=== PATIENT | female | born 1930 | race Caucasian/White ===

== ENCOUNTER 2017-04-07 06:06 | Inpatient (IN) | payer MEDICARE, MEDICAID ==
[~2017-04-07 06:06] MED LIST: Lactated Ringers 1,000 ML IV SCH; Lidocaine 1%/Sod Bicarbonate in NS 8.4% 1 ML Syringe PRN; Sodium Chloride 0.9% 10 ML Syringe FLUSH PRN
--- NOTE | 2017-04-07 06:40 | PCM.PREANE ---
Preanesthetic Assessment - Anesthesia/Transfusion/Family Hx Anesthesia History: Prior Anesthesia Without Reaction Family History of Anesthesia Reaction: No Transfusion History: No Prior Transfusion(s) - Review of Systems General: No Symptoms Pulmonary: No Symptoms Cardiovascular: No Symptoms Gastrointestinal: No Symptoms Neurological: Numbness (in feet and legs) Other: Reports: None - Physical Assessment NPO Status Date: 04/06/17 NPO Status Time: 00:00 Pulse: 56 O2 Sat by Pulse Oximetry: 98 Respiratory Rate: 16 Blood Pressure: 147/68 Temperature: 36.7 C Height: 1.63 m Weight: 63.412 kg ASA Class: 3 Mental Status: Alert & Oriented x3 Airway Class: Mallampati = 1 Dentition: Reports: Dentures Thyro-Mental Finger Breadths: 3 Mouth Opening Finger Breadths: 3 ROM/Head Extension: Full Lungs: Clear to Auscultation, Normal Respiratory Effort Cardiovascular: Regular Rate, Regular Rhythm, No Murmurs - Lab Values: Laboratory Last Values MRSA (PCR) Negative 03/25/17 15:00 - Imaging/EKG Impressions: EKG SR - Allergies Allergies/Adverse Reactions: Allergies Allergy/AdvReac Type Severity Reaction Status Date / Time ciprofloxacin [From Cipro] Allergy Rash Verified 04/04/17 11:43 clarithromycin [From Biaxin] Allergy Rash Verified 04/04/17 11:43 rosuvastatin [From Crestor] Allergy Muscle Verified 04/04/17 11:43 Aches - Anesthesia Plan Pre-Op Medication Ordered: None - Acknowledgements Anesthesia Type Planned: Spinal Pt an Appropriate Candidate for the Planned Anesthesia: Yes Alternatives and Risks of Anesthesia Discussed w Pt/Guardian: Yes Pt/Guardian Understands and Agrees with Anesthesia Plan: Yes PreAnesthesia Questionnaire Other HEENT History: glasses, dentures Cardiovascular History: Reports: High Cholesterol, Hypertension Respiratory History: Reports: Asthma, COPD Gastrointestinal History: Reports: Chronic Constipation, Other (See Below) Other Gastrointestinal History: small bowel obstruction, malignant neoplasm of colon 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 Musculoskeletal History: Reports: Osteoarthritis, Osteoporosis Neurological History: Reports: Neuropathy, Peripheral Psychiatric History: Reports: Other (See Below) Other Psychiatric History: fatigue Endocrine/Metabolic History: Reports: None Hematologic History: Reports: None Immunologic History: Reports: None Oncologic (Cancer) History: Reports: Colon Dermatologic History: Reports: Other (See Below) Other Dermatologic History: seborrheic keratosis - Past Surgical History Head Surgeries/Procedures: Reports: None HEENT Surgical History: Reports: Other (See Below) Other HEENT Surgeries/Procedures: YAG procedure GI Surgical History: Reports: Colonoscopy, Other (See Below) Other GI Surgeries/Procedures: decompression of the cecum and left colon and small bowel, end to side coloproctostomy, gastruomy/duodenostomy with a duenas gastroduodenostomy tube, explorator laparotomy, sigmoid colectomy, cecorrhapy times one, ventral heniorrhaphy with mesh reinforcment Female Surgical History: Reports: Hysterectomy Male Surgical History: Reports: None Endocrine Surgical History: Reports: None Neurological Surgical History: Reports: None - SUBSTANCE USE Smoking Status *Q: Former Smoker Recreational Drug Use History: No - HOME MEDS Home Medications: Home Meds Acetaminophen [Tylenol Extra Strength] 1,000 mg PO BID PRN 04/04/17 [History] Albuterol [Proventil HFA] 2 puff INH Q4H PRN 04/04/17 [History] Calcium Carbonate/Vitamin D3 [Calcium 600 + Vit D 200] 1 tab PO DAILY 04/04/17 [ History] Cholecalciferol (Vitamin D3) [Vitamin D3] 2,000 unit PO BID 04/04/17 [History] Colesevelam HCl [Welchol] 3.75 mg PO DAILY 04/04/17 [History] Cyanocobalamin (Vitamin B-12) [Vitamin B-12] 5,000 mcg PO DAILY 04/04/17 [ History] Fish Oil/DHA/EPA [Fish Oil 1,200 MG] 1,200 g PO BID 04/04/17 [History] Fluticasone/Salmeterol [Advair 250-50 Diskus] 1 puff INH BID 04/04/17 [History] Multivit-Min/FA/Lycopene/Lut [Centrum Silver Tablet] 1 tab PO DAILY 04/04/17 [ History] Polyethylene Glycol 3350 [MiraLAX] 1 dose PO BID 04/04/17 [History] - CURRENT (IN HOUSE) MEDS Current Meds: Current Medications Lactated Ringer's (Ringers, Lactated) 1,000 mls @ 125 mls/hr IV ASDIRECTED KARLY Lidocaine/Sodium Bicarbonate (Buffered Lidocaine 1% In Ns 8.4%) 0.25 ml IV ONETIME PRN PRN Reason: Prior to IV Start Sodium Chloride (Saline Flush) 10 ml FLUSH ASDIRECTED PRN PRN Reason: Keep Vein Open Discontinued Medications Bupivacaine HCl (Marcaine 0.25%) Confirm Administered Dose 30 ml .ROUTE .STK- MED ONE Stop: 04/07/17 06:09 Cefazolin Sodium (Ancef) Confirm Administered Dose 2 gm .ROUTE .STK-MED ONE Stop: 04/07/17 06:09 Iodine (Iodine 2% Mild Tincture) Confirm Administered Dose 30 ml .ROUTE .STK- MED ONE Stop: 04/07/17 06:09 Tranexamic Acid (Cyklokapron) Confirm Administered Dose 1,000 mg .ROUTE .STK- MED ONE Stop: 04/07/17 06:09 Vancomycin HCl (Vancomycin) Confirm Administered Dose 1 gm .ROUTE .STK-MED ONE Stop: 04/07/17 06:09
[2017-04-07] MEDS ORDERED: Ondansetron 4 MG/2 ML SDV ONE (06:56)
[2017-04-07] MEDS ORDERED: fentaNYL 100 MCG/2 ML SDV ONE (06:57)
[2017-04-07] MEDS ORDERED: Propofol 200 MG/20 ML SDV ONE ×2 (06:57→07:57)
[2017-04-07] MEDS ORDERED: ceFAZolin 1 GM Vial ONE (06:57)
[2017-04-07] MEDS ORDERED: Morphine PF 10 MG/10 ML SDV ONE (06:58)
[2017-04-07] MEDS ORDERED: Phenylephrine 1% 10 MG/ML SDV ONE (07:36)
[2017-04-07] MEDS ORDERED: Atropine 0.4 MG/ML SDV ONE (07:44)
[2017-04-07] MEDS: ceFAZolin 1 GM Vial ONE ×2 (08:10→08:22)
[2017-04-07] MEDS: Iodine/Sodium Iodide 2% Tincture 30 ML Bottle ONE ×2 (08:10→08:20)
[2017-04-07] MEDS: Bupivacaine 0.25% 30 ML SDV ONE ×2 (08:11→08:25)
[2017-04-07] MEDS: Morphine 8 MG, EPINEPHrine 0.3 MG, Cefuroxime 750 MG, Ketorolac 30 MG, Sodium Chloride ... ONE ×10 (08:11→08:24)
[2017-04-07] MEDS: Vancomycin 1 GM SDV ONE ×2 (08:12→08:26)
[2017-04-07] MEDS ORDERED: Lactated Ringers 1,000 ML ONE (08:49)
[2017-04-07] MEDS ORDERED: Morphine 2 MG/ML Syringe IVPUSH PRN (09:00)
[2017-04-07] MEDS ORDERED: Magnesium Hydroxide 400 MG/5 ML Susp 30 ML Cup PO PRN (09:00)
[2017-04-07] MEDS ORDERED: Sennosides 8.6 MG Tab PO PRN (09:00)
[2017-04-07] MEDS ORDERED: Ondansetron 4 MG/2 ML SDV IVPUSH PRN (09:00)
[2017-04-07] MEDS ORDERED: diphenhydrAMINE 50 MG/ML SDV IVPUSH PRN (09:00)
[2017-04-07] MEDS ORDERED: Bisacodyl 5 MG Tab PO PRN (09:00)
[2017-04-07] MEDS ORDERED: Naloxone 0.4 MG/ML SDV IVPUSH PRN (09:00)
--- NOTE | 2017-04-07 09:02 | PCM.POSTAN ---
POST ANESTHESIA ASSESSMENT - MENTAL STATUS Mental Status: Alert, Oriented - VITAL SIGNS Pulse Rate: 61 SaO2: 96 Resp Rate: 11 Blood Pressure: 94/55 Temperature: 36.7 C - RESPIRATORY Respiratory Status: Respiratory Rate WNL, Airway Patent, O2 Saturation Stable, Supplemental Oxygen - CARDIOVASCULAR CV Status: Pulse Rate WNL, Blood Pressure Stable - GASTROINTESTINAL GI Status: No Symptoms - PAIN Pain Score: 0 - POST OP HYDRATION Hydration Status: Adequate & Stable - OBSERVATIONS Free Text/Narrative:: no anesthesia complications noted
--- NOTE | 2017-04-07 10:38 | CR ---
Pelvis and right hip: AP view of the pelvis was obtained as well as lateral view of the right hip. Comparison: No previous study. Right hip prosthesis is seen. Components are aligned. Soft tissue air is noted from the surgical procedure. Underlying bony structures appear intact. Degenerative change and scoliosis are noted within the spine. Vascular calcification is noted. Minimal degenerative change is seen within the sacroiliac joints. Impression: 1. Satisfactory radiographic appearance of recently placed right hip prosthesis. 2. Other incidental findings. Diagnostic code #2
[2017-04-07] MEDS ORDERED: Pneumococcal Polyvalent-23 Vaccine 0.5 ML SDV IM ONE (12:00)
[2017-04-07] MEDS ORDERED: Albuterol 6.7 GM Inhaler INH PRN (13:27)
--- NOTE | 2017-04-07 13:35 | PCM.CONS ---
H&P History of Present Illness - General Date of Service: 04/07/17 Admit Problem/Dx: Admission Diagnosis/Problem Admission Diagnosis/Problem Osteoarthritis of hip Source of Information: Patient, Old Records History Limitations: Reports: No Limitations - History of Present Illness Initial Comments - Free Text/Narative: Nayeli is a pleasant 86yo female s/p rt LAUR[facility] with Dr. Mckenzie this morning. She is doing well thus far. Denies pain as of yet, no nausea. VSS. PMH significant for HTN, HLD, COPD/asthma, chronic constipation, Peripheral Neuropathy, suborrheic keratosis, hx of tobacco use/smoking and hx of colon cancer. Hospitalist service is consulted for postoperative medical management. - Related Data Allergies/Adverse Reactions: Allergies Allergy/AdvReac Type Severity Reaction Status Date / Time ciprofloxacin [From Cipro] Allergy Rash Verified 04/07/17 06:56 clarithromycin [From Biaxin] Allergy Rash Verified 04/07/17 06:56 rosuvastatin [From Crestor] AdvReac Muscle Verified 04/07/17 07:08 Aches Home Medications: Home Meds Acetaminophen [Tylenol Extra Strength] 1,000 mg PO BID PRN 04/04/17 [History] Albuterol [Proventil HFA] 2 puff INH Q4H PRN 04/04/17 [History] Calcium Carbonate/Vitamin D3 [Calcium 600 + Vit D 200] 1 tab PO DAILY 04/04/17 [ History] Cholecalciferol (Vitamin D3) [Vitamin D3] 2,000 unit PO BID 04/04/17 [History] Colesevelam HCl [Welchol] 3.75 mg PO DAILY 04/04/17 [History] Cyanocobalamin (Vitamin B-12) [Vitamin B-12] 5,000 mcg PO DAILY 04/04/17 [ History] Fish Oil/DHA/EPA [Fish Oil 1,200 MG] 1,200 g PO BID 04/04/17 [History] Fluticasone/Salmeterol [Advair 250-50 Diskus] 1 puff INH BID 04/04/17 [History] Multivit-Min/FA/Lycopene/Lut [Centrum Silver Tablet] 1 tab PO DAILY 04/04/17 [ History] Polyethylene Glycol 3350 [MiraLAX] 1 dose PO BID 04/04/17 [History] Past Medical History Other HEENT History: glasses, dentures Cardiovascular History: Reports: High Cholesterol, Hypertension Respiratory History: Reports: Asthma, COPD Gastrointestinal History: Reports: Chronic Constipation, Other (See Below) Other Gastrointestinal History: small bowel obstruction, malignant neoplasm of colon 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 Musculoskeletal History: Reports: Osteoarthritis, Osteoporosis Neurological History: Reports: Neuropathy, Peripheral Psychiatric History: Reports: Other (See Below) Other Psychiatric History: fatigue Endocrine/Metabolic History: Reports: None Hematologic History: Reports: None Immunologic History: Reports: None Oncologic (Cancer) History: Reports: Colon Dermatologic History: Reports: Other (See Below) Other Dermatologic History: seborrheic keratosis - Infectious Disease History Infectious Disease History: Reports: Chicken Pox, Measles, Mumps - Past Surgical History Head Surgeries/Procedures: Reports: None HEENT Surgical History: Reports: Other (See Below) Other HEENT Surgeries/Procedures: YAG procedure GI Surgical History: Reports: Colonoscopy, Other (See Below) Other GI Surgeries/Procedures: decompression of the cecum and left colon and small bowel, end to side coloproctostomy, gastruomy/duodenostomy with a duenas gastroduodenostomy tube, explorator laparotomy, sigmoid colectomy, cecorrhapy times one, ventral heniorrhaphy with mesh reinforcment Female Surgical History: Reports: Hysterectomy Endocrine Surgical History: Reports: None Neurological Surgical History: Reports: None Social & Family History - Family History Family Medical History: Noncontributory - Tobacco Use Smoking Status *Q: Never Smoker Used Tobacco, but Quit: Yes Month Tobacco Last Used: 1994 Second Hand Smoke Exposure: No - Caffeine Use Caffeine Use: Reports: Coffee Other Caffeine Use: a lot-decaf - Recreational Drug Use Recreational Drug Use: No H&P Review of Systems - Review of Systems: Review Of Systems: See Below General: Reports: No Symptoms HEENT: Reports: No Symptoms Pulmonary: Reports: No Symptoms. Denies: Shortness of Breath, Cough Cardiovascular: Reports: No Symptoms. Denies: Chest Pain, Palpitations Gastrointestinal: Reports: No Symptoms. Denies: Abdominal Pain, Nausea Genitourinary: Reports: Other (bray cath ) Musculoskeletal: Reports: Other (denies c/o hip pain/surgical pain as of yet) Exam - Exam Exam: See Below - Vital Signs Vital Signs: Last Vital Signs Temp 97.5 F 04/07/17 09:45 Pulse 61 04/07/17 09:02 Resp 14 04/07/17 09:45 BP 117/60 04/07/17 09:45 Pulse Ox 96 04/07/17 09:45 Weight: 139 lb - Exam Quality Assessment: Urinary Catheter (draining clear light yellow urine), DVT Prophylaxis (SCD's in place bilat) General: Alert, Oriented, Cooperative HEENT: Conjunctiva Clear, EOMI, Hearing Intact, Mucosa Moist & [place], Pupils Equal Neck: Supple, Trachea Midline. No: JVD Lungs: Clear to Auscultation, Normal Respiratory Effort Cardiovascular: Regular Rate, Regular Rhythm GI/Abdominal Exam: Normal Bowel Sounds, Soft, Non-Tender (Female) Exam: Deferred Rectal (Female) Exam: Deferred Peripheral Pulses: 1+: Dorsalis Pedis (L), Dorsalis Pedis (R) Skin: Warm, Dry, Other (right hip dressing CDI) Neurological: Cranial Nerves Intact, Strength Equal Bilateral Neuro Extensive - Mental Status: Alert, Oriented x3, Normal Mood/Affect, Normal Cognition, Memory Intact Psychiatric: Alert, Normal Affect, Normal Mood - Patient Data Lab Results Last 24 hrs: Laboratory Results - last 24 hr 04/07/17 Range/Units 06:38 Blood Type O POSITIVE Gel Antibody Screen Negative Consult PN Assessment/Plan POD#: 0 (1) S/P total hip arthroplasty SNOMED Code(s): 555119986460, 164844242613 Code(s): Z96.649 - PRESENCE OF UNSPECIFIED ARTIFICIAL HIP JOINT Priority: High Current Visit: Yes Qualifiers: Laterality: right Qualified Code(s): Z96.641 - Presence of right artificial hip joint (2) Osteoarthritis SNOMED Code(s): 206895966 Code(s): M19.90 - UNSPECIFIED OSTEOARTHRITIS, UNSPECIFIED SITE Priority: High Current Visit: Yes Qualifiers: Osteoarthritis location: hip Osteoarthritis type: primary Laterality: right Qualified Code(s): M16.11 - Unilateral primary osteoarthritis, right hip (3) HTN (hypertension) SNOMED Code(s): 63710952 Code(s): I10 - ESSENTIAL (PRIMARY) HYPERTENSION Priority: Low Current Visit: No Qualifiers: Hypertension type: essential hypertension Qualified Code(s): I10 - Essential (primary) hypertension (4) HLD (hyperlipidemia) SNOMED Code(s): 07326691 Code(s): E78.5 - HYPERLIPIDEMIA, UNSPECIFIED Priority: Low Current Visit : No Qualifiers: Hyperlipidemia type: unspecified Qualified Code(s): E78.5 - Hyperlipidemia , unspecified (5) COPD (chronic obstructive pulmonary disease) SNOMED Code(s): 21696650 Code(s): J44.9 - CHRONIC OBSTRUCTIVE PULMONARY DISEASE, UNSPECIFIED Priority: Low Current Visit: No Qualifiers: Chronic bronchitis type: unspecified (6) Peripheral neuropathy SNOMED Code(s): 155668715 Code(s): G62.9 - POLYNEUROPATHY, UNSPECIFIED Priority: Low Current Visit : No Qualifiers: Peripheral neuropathy type: polyneuropathy, unspecified Qualified Code(s): G62.9 - Polyneuropathy, unspecified (7) History of colon cancer SNOMED Code(s): 694411383 Code(s): Z85.038 - PERSONAL HISTORY OF MALIGNANT NEOPLASM OF LARGE INTESTINE Priority: Low Current Visit: No Problem List Initiated/Reviewed/Updated: Yes My Orders Last 24 Hours: My Active Orders 04/07/17 13:27 Albuterol [Proventil HFA] 2 puff INH Q4H PRN 04/07/17 21:00 Cholecalciferol (Vitamin D3) [Vitamin D3] 2,000 unit PO BID Fish Oil/DHA/EPA [Fish Oil 1,200 MG] 1,200 g PO BID Fluticasone/Salmeterol [Advair Diskus 250-50] 1 puff INH BID Polyethylene Glycol 3350 [MiraLAX] 1 dose PO BID 04/08/17 09:00 Calcium Carbonate/Vitamin D3 [Calcium Carbonate/Vitamin D 1500 MG-200 Unit] 1 tab PO DAILY Colesevelam HCl [Welchol] 3.75 mg PO DAILY Cyanocobalamin (Vitamin B-12) [Vitamin B-12] 5,000 mcg PO DAILY Plan: I/P: S/P Rt LAUREN POD #0; Dr. Mckenzie -Pain management and DVT prophylax per primary team -PT/OT -RT/IS -Labs in am; hgb Chronic conditions: resume home meds HTN: stable currently HLD COPD/asthma PN Hx of colon cancer Hx of tobacco use/smoking, quit years ago Other: GI prophylax CM/SW for assist with DC planning Patient is Full Code status Thank you for allowing us to participate in patient POC. Please do not hesitate to contact us with any questions or concerns. Requesting Provider: Dr. Mckenzie Date Consult Requested: 04/07/17 Reason for Consult: Postop medical management Patient History Reviewed: Yes Time Spent (in minutes): 45
[2017-04-07] MEDS: ceFAZolin 2 GM in Premix Bag 1 BAG IV SCH ×2 (15:06→22:02)
[2017-04-07] MEDS: Famotidine 20 MG Tab PO SCH (20:54)
[2017-04-07] MEDS: Polyethylene Glycol 3350 Powder 17 GM Packet PO SCH (20:54)
[2017-04-07] MEDS: Docusate Sodium 100 MG Cap PO SCH (20:54)
--- NOTE | 2017-04-07 21:51 | PCM.OPNOTE ---
- General Post-Op/Procedure Note Date of Surgery/Procedure: 04/07/17 Operative Procedure(s): right total hipn arthroplasty Pre Op Diagnosis: right hip osteoarthrosis Post-Op Diagnosis: Same Anesthesia Technique: Local, MAC, Spinal Primary Surgeon: Kel Mckenzie Anesthesia Provider: [facility]les[facility] [employer] Control Supervisor: Palma Shahid Network Control Supervisor: Zarina Brandt EBL in mLs: 500 Complications: None Condition: Good Free Text/Narrative:: Intake & Output 04/07/17 04/07/17 04/07/17 06:59 14:59 22:59 Intake Total 450 680 Output Total 250 350 Balance 200 330
[2017-04-07] MEDS: Acetaminophen/HYDROcodone 325-5 MG Tab PO PRN (21:54)
--- NOTE | 2017-04-07 22:44 | OR ---
DATE OF OPERATION: 04/07/2017 SURGEON: Kel Mckenzie MD OPERATION PERFORMED: Right total hip arthroplasty. PREOPERATIVE DIAGNOSIS: Right hip osteoarthrosis. POSTOPERATIVE DIAGNOSIS: Right hip osteoarthrosis. ANESTHESIA: Local MAC with spinal. ANESTHESIA PROVIDER: Iglesia Lemos CRNA. ASSISTANTS: 1. Palma Shahid PA-C. 2. Zarina Brandt LPN. ESTIMATED BLOOD LOSS: 500 mL. COMPLICATIONS: None. CONDITION: Stable. IMPLANT: 1. [place] 52 mm Tritanium solid acetabular cup. 2. [place] size 6 Accolade II stem 127-degree neck angle. 3. 36 mm D-liner. 4. 36 mm Biolox +7.5 mm femoral head. DESCRIPTION OF PROCEDURE: The patient was identified in the preop holding area. Proper site was marked and identified by the surgeon. The patient was taken back to the operating theater where after adequate anesthesia, the patient was placed in the left lateral decubitus position. Axillary wedge was placed, all bony prominences were well padded, and pegs were placed and well padded. The patient's gluteal fold was parallel to the floor. At this time, the right hip was then sterilely prepped and draped in the usual sterile fashion. OR time-out was performed. The patient received 2 g IV Ancef. Standard posterior incision was made centered over the greater trochanter. The IT band and gluteal fascia were then incised along the incisional length. Charnley retractor was then placed. Short external rotators were identified along with piriformis tendon. Takedown of the piriformis tendon as well as short external rotators was done down to the level of the lesser trochanter. Capsulotomy was then performed as well. The hip was then dislocated. Neck cut guide was placed. The neck cut was then completed and found to be adequate. Anterior and posterior acetabular retractors were placed along with inferior acetabular retractor. The patient was noted to have kind of redundant capsule. Anterior and posterior labrum were removed along with pulvinar. Starting with a 45 reamer, I was able to ream up to a 52, which was found to be stable with a 52 mm trial. At this time, a 52 mm Tritanium solid acetabular cup was impacted into place in roughly 45 degrees abduction and 20 degrees of anteversion. It was found to have solid fixation. A 36 size D liner was then impacted into place. At this time, attention was turned to the femur. A femoral elevator was placed. A box chisel was used out laterally. Starter awl was placed down the canal. Starting with 0 broach, I broached up to a size 6 which was found to be rotationally and vertically stable. At this time, a 127-degree neck angle with a +5, 36 mm head was trialed. It was found to be just a minor amount short. At this time, it was decided that we would go with +7.5 mm head. A size 6 Accolade II stem was then impacted into place. 36 mm, +7.5 head was then impacted into place and the hip was reduced. It was found to be stable throughout range of motion. 1 L dilute Betadine solution was then irrigated through the hip along with 3 L of pulse lavage irrigation with Ancef. Periarticular injection was then completed. Two #5 Ethibond sutures were used for closure of the short external rotators and capsule. Vancomycin powder was placed topically along with topical tranexamic acid. #2 barbed suture was used for closure of the IT band and gluteal fascia, 2-0 Vicryl was used subcutaneously, and Prineo was used for the skin. The patient tolerated the procedure well and was sent to the PACU in stable condition. BERNRAD /[id number]
[2017-04-08] MEDS: Acetaminophen/HYDROcodone 325-5 MG Tab PO PRN ×2 (05:18→12:33)
[2017-04-08] MEDS: ceFAZolin 2 GM in Premix Bag 1 BAG IV SCH (06:06)
[2017-04-08] MEDS ORDERED: Multivitamins,Therapeutic Tab PO SCH (07:00)
--- NOTE | 2017-04-08 07:51 | PCM.CONSN ---
- General Info Date of Service: 04/08/17 Admission Dx/Problem (Free Text): Admission Diagnosis/Problem Admission Diagnosis/Problem Osteoarthritis of hip POD #[address] Mckenzie, doing well. No n/v. Pain controlled. Up with PT/OT , doing well. Plans DC home today with family to assist. Hgb 9.8 this am. VSS. Functional Status: Reports: Pain Controlled, Tolerating Diet, Ambulating, Urinating (bray cath dc'd this am), Incentive Spirometry. Denies: New Symptoms - Review of Systems General: Reports: No Symptoms HEENT: Reports: No Symptoms Pulmonary: Reports: No Symptoms Cardiovascular: Reports: No Symptoms Gastrointestinal: Reports: No Symptoms Genitourinary: Reports: No Symptoms Musculoskeletal: Reports: Leg Pain Skin: Reports: No Symptoms Neurological: Reports: No Symptoms Psychiatric: Reports: No Symptoms - Patient Data Vitals - Most Recent: Last Vital Signs Temp 97.5 F 04/08/17 03:17 Pulse 65 04/08/17 03:17 Resp 16 04/08/17 07:00 BP 103/50 L 04/08/17 03:17 Pulse Ox 95 04/08/17 03:17 Weight - Most Recent: 149 lb 1.6 oz I&O - Last 24 Hours: Intake & Output 04/07/17 04/08/17 04/08/17 22:59 06:59 14:59 Intake Total 680 700 Output Total 350 Balance 330 700 Lab Results Last 24 Hours: Laboratory Results - last 24 hr 04/07/17 04/08/17 04/08/17 Range/Units 06:38 05:35 05:35 WBC 7.30 (3.98-10.04) K/mm3 RBC 3.11 L (3.98-5.22) M/mm3 Hgb 9.8 L (11.2-15.7) gm/L Hct 30.7 L (34.1-44.9) % MCV 98.7 H (79.4-94.8) fl MCH 31.5 (25.6-32.2) pg MCHC 31.9 L (32.2-35.5) g/dl RDW Std Deviation 50.8 H (36.4-46.3) fL Plt Count 227 (182-369) K/mm3 MPV 10.3 (9.4-12.3) fl Sodium 136 (136-145) mEq/L Potassium 4.0 (3.5-5.1) mEq/L Chloride 103 (98-107) mEq/L Carbon Dioxide 24 (21-32) mEq/L Anion Gap 13.0 (5-15) BUN 20 H (7-18) mg/dL Creatinine 0.8 (0.55-1.02) mg/dL Est Cr Clr Drug Dosing 44.40 mL/min Estimated GFR (MDRD) > 60 (>60) mL/min BUN/Creatinine Ratio 25.0 H (14-18) Glucose 114 (83-115) mg/dL Calcium 8.3 L (8.5-10.1) mg/dL Total Bilirubin 0.5 (0.2-1.0) mg/dL AST 29 (15-37) U/L ALT 20 (14-59) U/L Alkaline Phosphatase 53 (46-116) U/L Total Protein 5.6 L (6.4-8.2) g/dl Albumin 2.7 L (3.4-5.0) g/dl Globulin 2.9 gm/dL Albumin/Globulin Ratio 0.9 L (1-2) Blood Type O POSITIVE Gel Antibody Screen Negative Med Orders - Current: Current Medications Hydrocodone Bitart/Acetaminophen ([place] 325-5 Mg) 1 - 2 tab PO Q4H PRN PRN Reason: Pain Last Admin: 04/08/17 05:18 Dose: 2 tab Albuterol (Proventil Hfa) 0 gm INH Q4H PRN PRN Reason: Shortness of Breath Bisacodyl (Dulcolax) 5 mg PO DAILY PRN PRN Reason: Constipation Calcium Carbonate (Calcium Carbonate/Vitamin D 1500 Mg-200 Unit) 1 tab PO DAILY [facility] Cholecalciferol (Vitamin D3) 2,000 units PO BID [facility] Cyanocobalamin (Vitamin B12) 5,000 mcg PO DAILY [facility] Docusate Sodium (Colace) 100 mg PO BID [facility] Last Admin: 04/07/17 20:54 Dose: 100 mg Famotidine (Pepcid) 20 mg PO BID [facility] Last Admin: 04/07/17 20:54 Dose: 20 mg Fish Oil (Fish Oil) 1 gm PO BID [facility] Magnesium Hydroxide (Milk Of Magnesia) 30 ml PO BID PRN PRN Reason: Constipation Morphine Sulfate (Morphine) 1 mg IVPUSH Q2H PRN PRN Reason: Breakthrough pain Multivitamins (Thera) 1 each PO WITHBREAKFAST [facility] Last Admin: 04/08/17 06:06 Dose: 1 each Naloxone HCl (Narcan) 0.1 mg IVPUSH Q5M PRN PRN Reason: Oversedation Ondansetron HCl (Zofran) 4 mg IVPUSH Q6H PRN PRN Reason: Nausea/Vomiting Colesevelam Hcl [ (Welchol] 3.75 Mg) 0 each PO DAILY [facility] Polyethylene Glycol (Miralax) 17 gm PO BID [facility] Last Admin: 04/07/17 20:54 Dose: 17 gm Rivaroxaban (Xarelto) 10 mg PO DAILY [facility] Fluticasone/Salmeterol (Advair Diskus 250-50) 0 puff INH BID [facility] Senna (Senna) 8.6 mg PO BID PRN PRN Reason: Constipation Discontinued Medications Atropine Sulfate (Atropine) Confirm Administered Dose 0.4 mg .ROUTE .STK-MED ONE Stop: 04/07/17 07:45 Bupivacaine HCl (Marcaine 0.25%) Confirm Administered Dose 30 ml .ROUTE .STK- MED ONE Stop: 04/07/17 06:09 Last Admin: 04/07/17 08:25 Dose: 30 ml Cefazolin Sodium (Ancef) Confirm Administered Dose 2 gm .ROUTE .STK-MED ONE Stop: 04/07/17 06:09 Last Admin: 04/07/17 08:22 Dose: 2 gm Cefazolin Sodium (Ancef) Confirm Administered Dose 2 gm .ROUTE .STK-MED ONE Stop: 04/07/17 06:58 Morphine Sulfate 8 mg/Epinephrine HCl 0.3 mg/Cefuroxime Sodium 750 mg/Ketorolac Tromethamine 30 mg/Sodium Chloride 27.9 ml 0 mg .XX ONETIME ONE Stop: 04/07/17 07:46 Last Admin: 04/07/17 08:24 Dose: 788.3 mg Diphenhydramine HCl (Benadryl) 25 mg IVPUSH Q6H PRN PRN Reason: Itching Stop: 04/07/17 12:00 Fentanyl (Sublimaze) Confirm Administered Dose 100 mcg .ROUTE .STK-MED ONE Stop: 04/07/17 06:58 Lactated Ringer's (Ringers, Lactated) 1,000 mls @ 125 mls/hr IV ASDIRECTED [facility] Stop: 04/07/17 23:00 Last Admin: 04/07/17 06:45 Dose: 125 mls/hr Cefazolin Sodium/Dextrose 2 gm (/ Premix) 50 mls @ 100 mls/hr IV Q8H [facility] Stop: 04/08/17 07:29 Last Admin: 04/08/17 06:06 Dose: 100 mls/hr Lactated Ringer's (Ringers, Lactated) Confirm Administered Dose 1,000 mls @ as directed .ROUTE .STK-MED ONE Stop: 04/07/17 08:50 Iodine (Iodine 2% Mild Tincture) Confirm Administered Dose 30 ml .ROUTE .STK- MED ONE Stop: 04/07/17 06:09 Last Admin: 04/07/17 08:20 Dose: 18 ml Lidocaine/Sodium Bicarbonate (Buffered Lidocaine 1% In Ns 8.4%) 0.25 ml .XX ONETIME PRN PRN Reason: Prior to IV Start Stop: 04/07/17 12:00 Last Admin: 04/07/17 06:45 Dose: 0.25 ml Morphine Sulfate (Duramorph Pf) Confirm Administered Dose 10 mg .ROUTE .STK-MED ONE Stop: 04/07/17 06:59 Ondansetron HCl (Zofran) Confirm Administered Dose 4 mg .ROUTE .STK-MED ONE Stop: 04/07/17 06:57 Phenylephrine HCl (Andrew-Synephrine) Confirm Administered Dose 10 mg .ROUTE .STK- MED ONE Stop: 04/07/17 07:37 Pneumococcal Polyvalent Vaccine (Pneumovax 23) 0.5 ml IM .ONCE ONE Stop: 04/07/17 12:01 Propofol (Diprivan 20 Ml) Confirm Administered Dose 200 mg .ROUTE .STK-MED ONE Stop: 04/07/17 06:58 Propofol (Diprivan 20 Ml) Confirm Administered Dose 200 mg .ROUTE .STK-MED ONE Stop: 04/07/17 07:58 Sodium Chloride (Saline Flush) 10 ml FLUSH ASDIRECTED PRN PRN Reason: Keep Vein Open Stop: 04/07/17 12:00 Tranexamic Acid (Cyklokapron) Confirm Administered Dose 1,000 mg .ROUTE .STK- MED ONE Stop: 04/07/17 06:09 Last Admin: 04/07/17 09:35 Dose: 1,000 mg Vancomycin HCl (Vancomycin) Confirm Administered Dose 1 gm .ROUTE .STK-MED ONE Stop: 04/07/17 06:09 Last Admin: 04/07/17 08:26 Dose: 1 gm - Exam Quality Assessment: DVT Prophylaxis General: Alert, Oriented, Cooperative, No Acute Distress HEENT: Pupils Equal, EOMI, Mucous Membr. Moist/[place] Neck: Supple Lungs: Clear to Auscultation, Normal Respiratory Effort Cardiovascular: Regular Rate, Regular Rhythm GI/Abdominal Exam: Normal Bowel Sounds, Soft, Non-Tender (Female) Exam: Deferred Extremities: No Pedal Edema, Other (Teds, SCD's. Dressing CDI to rt hip) Peripheral Pulses: 1+: Dorsalis Pedis (L), Dorsalis Pedis (R) Skin: Warm, Dry Wound/Incisions: Dressing Dry and Intact Neurological: No New Focal Deficit Psy/Mental Status: Alert, Normal Affect, Normal Mood Consult PN Assessment/Plan POD#: 1 (1) S/P total hip arthroplasty SNOMED Code(s): 071634079309, 482949892344 Code(s): Z96.649 - PRESENCE OF UNSPECIFIED ARTIFICIAL HIP JOINT Priority: High Current Visit: Yes Qualifiers: Laterality: right Qualified Code(s): Z96.641 - Presence of right artificial hip joint (2) Osteoarthritis SNOMED Code(s): 672042277 Code(s): M19.90 - UNSPECIFIED OSTEOARTHRITIS, UNSPECIFIED SITE Priority: High Current Visit: Yes Qualifiers: Osteoarthritis location: hip Osteoarthritis type: primary Laterality: right Qualified Code(s): M16.11 - Unilateral primary osteoarthritis, right hip (3) HTN (hypertension) SNOMED Code(s): 05645723 Code(s): I10 - ESSENTIAL (PRIMARY) HYPERTENSION Priority: Low Current Visit: No Qualifiers: Hypertension type: essential hypertension Qualified Code(s): I10 - Essential (primary) hypertension (4) HLD (hyperlipidemia) SNOMED Code(s): 18850880 Code(s): E78.5 - HYPERLIPIDEMIA, UNSPECIFIED Priority: Low Current Visit : No Qualifiers: Hyperlipidemia type: unspecified Qualified Code(s): E78.5 - Hyperlipidemia , unspecified (5) COPD (chronic obstructive pulmonary disease) SNOMED Code(s): 45690859 Code(s): J44.9 - CHRONIC OBSTRUCTIVE PULMONARY DISEASE, UNSPECIFIED Priority: Low Current Visit: No Qualifiers: Chronic bronchitis type: unspecified (6) Peripheral neuropathy SNOMED Code(s): 211502093 Code(s): G62.9 - POLYNEUROPATHY, UNSPECIFIED Priority: Low Current Visit : No Qualifiers: Peripheral neuropathy type: polyneuropathy, unspecified Qualified Code(s): G62.9 - Polyneuropathy, unspecified (7) History of colon cancer SNOMED Code(s): 650589878 Code(s): Z85.038 - PERSONAL HISTORY OF MALIGNANT NEOPLASM OF LARGE INTESTINE Priority: Low Current Visit: No Problem List Initiated/Reviewed/Updated: Yes My Orders Last 24 Hours: My Active Orders 04/07/17 13:27 Albuterol [Proventil HFA] 0 gm INH Q4H PRN 04/07/17 21:00 Fluticasone/Salmeterol [Advair Diskus 250-50] 0 puff INH BID Polyethylene Glycol 3350 [MiraLAX] 17 gm PO BID 04/08/17 09:00 Calcium Carbonate/Vitamin D3 [Calcium Carbonate/Vitamin D 1500 MG-200 Unit] 1 tab PO DAILY Cholecalciferol (Vitamin D3) [Vitamin D3] 2,000 units PO BID Cyanocobalamin (Vitamin B12) [Vitamin B12] 5,000 mcg PO DAILY Fish Oil/[place]-3 Fatty Acids [Fish Oil] 1 gm PO BID Patient's Own Medication [Ptom] 0 each PO DAILY Plan: I/P: S/P Rt LAUREN POD #1; Dr. Mckenzie -Pain management and DVT prophylax per primary team -PT/OT -RT/IS -Labs: hgb 9.8 Chronic conditions: resume home meds HTN: stable currently HLD COPD/asthma PN Hx of colon cancer Hx of tobacco use/smoking, quit years ago Other: GI prophylax CM/SW for assist with DC planning---ok from Hospitalist standpoint for DC home today with family care. Patient is Full Code status Thank you for allowing us to participate in patient POC. Please do not hesitate to contact us with any questions or concerns.
[2017-04-08 08:02] VITALS: BP 107/50
[2017-04-08] MEDS: ADVAIR INH SCH ×2 (08:38)
[2017-04-08] MEDS ORDERED: Rivaroxaban 10 MG Tab PO SCH (09:00)
[2017-04-08] MEDS ORDERED: Cholecalciferol (Vitamin D3) 1,000 Unit Tab PO SCH (09:00)
[2017-04-08] MEDS ORDERED: Calcium Carbonate/Vitamin D3 1500 MG-200 Units Tab PO SCH (09:00)
[2017-04-08] MEDS ORDERED: Fish Oil/Omega-3 Fatty Acids 1 Gm Cap PO SCH (09:00)
[2017-04-08] MEDS ORDERED: Cyanocobalamin (Vitamin B12) 1,000 MCG Tab PO SCH (09:00)
[2017-04-08] MEDS ORDERED: COLESEVELAM HCL PO SCH (09:00)
[2017-04-08] MEDS: Polyethylene Glycol 3350 Powder 17 GM Packet PO SCH (10:06)
[2017-04-08] MEDS: Docusate Sodium 100 MG Cap PO SCH (10:07)
[2017-04-08] MEDS: Famotidine 20 MG Tab PO SCH (10:07)
--- NOTE | 2017-04-08 13:00 | PCM.SURGPN ---
- General Info Date of Service: 04/08/17 POD#: 1 Functional Status: Reports: Pain Controlled, Tolerating Diet, Incentive Spirometry, Other (The pt met inpatient therapy goals.) - Patient Data Vitals - Most Recent: Last Vital Signs Temp 98.8 F 04/08/17 07:29 Pulse 61 04/08/17 07:29 Resp 17 04/08/17 12:00 BP 107/50 L 04/08/17 07:29 Pulse Ox 95 04/08/17 08:39 Weight - Most Recent: 149 lb 1.6 oz I&O - Last 24 Hours: Intake & Output 04/07/17 04/08/17 04/08/17 22:59 06:59 14:59 Intake Total 680 700 Output Total 350 Balance 330 700 Lab Results Last 24 Hrs: Laboratory Results - last 24 hr 04/08/17 04/08/17 Range/Units 05:35 05:35 WBC 7.30 (3.98-10.04) K/mm3 RBC 3.11 L (3.98-5.22) M/mm3 Hgb 9.8 L (11.2-15.7) gm/L Hct 30.7 L (34.1-44.9) % MCV 98.7 H (79.4-94.8) fl MCH 31.5 (25.6-32.2) pg MCHC 31.9 L (32.2-35.5) g/dl RDW Std Deviation 50.8 H (36.4-46.3) fL Plt Count 227 (182-369) K/mm3 MPV 10.3 (9.4-12.3) fl Sodium 136 (136-145) mEq/L Potassium 4.0 (3.5-5.1) mEq/L Chloride 103 (98-107) mEq/L Carbon Dioxide 24 (21-32) mEq/L Anion Gap 13.0 (5-15) BUN 20 H (7-18) mg/dL Creatinine 0.8 (0.55-1.02) mg/dL Est Cr Clr Drug Dosing 44.40 mL/min Estimated GFR (MDRD) > 60 (>60) mL/min BUN/Creatinine Ratio 25.0 H (14-18) Glucose 114 (83-115) mg/dL Calcium 8.3 L (8.5-10.1) mg/dL Total Bilirubin 0.5 (0.2-1.0) mg/dL AST 29 (15-37) U/L ALT 20 (14-59) U/L Alkaline Phosphatase 53 (46-116) U/L Total Protein 5.6 L (6.4-8.2) g/dl Albumin 2.7 L (3.4-5.0) g/dl Globulin 2.9 gm/dL Albumin/Globulin Ratio 0.9 L (1-2) Med Orders - Current: Current Medications Hydrocodone Bitart/Acetaminophen ([place] 325-5 Mg) 1 - 2 tab PO Q4H PRN PRN Reason: Pain Last Admin: 04/08/17 12:33 Dose: 2 tab Albuterol (Proventil Hfa) 0 gm INH Q4H PRN PRN Reason: Shortness of Breath Bisacodyl (Dulcolax) 5 mg PO DAILY PRN PRN Reason: Constipation Calcium Carbonate (Calcium Carbonate/Vitamin D 1500 Mg-200 Unit) 1 tab PO DAILY [facility] Last Admin: 04/08/17 10:07 Dose: 1 tab Cholecalciferol (Vitamin D3) 2,000 units PO BID [facility] Last Admin: 04/08/17 10:07 Dose: 2,000 units Cyanocobalamin (Vitamin B12) 5,000 mcg PO DAILY [facility] Last Admin: 04/08/17 10:06 Dose: 5,000 mcg Docusate Sodium (Colace) 100 mg PO BID [facility] Last Admin: 04/08/17 10:07 Dose: 100 mg Famotidine (Pepcid) 20 mg PO BID [facility] Last Admin: 04/08/17 10:07 Dose: 20 mg Fish Oil (Fish Oil) 1 gm PO BID [facility] Last Admin: 04/08/17 10:07 Dose: 1 gm Magnesium Hydroxide (Milk Of Magnesia) 30 ml PO BID PRN PRN Reason: Constipation Morphine Sulfate (Morphine) 1 mg IVPUSH Q2H PRN PRN Reason: Breakthrough pain Multivitamins (Thera) 1 each PO WITHBREAKFAST [facility] Last Admin: 04/08/17 06:06 Dose: 1 each Naloxone HCl (Narcan) 0.1 mg IVPUSH Q5M PRN PRN Reason: Oversedation Ondansetron HCl (Zofran) 4 mg IVPUSH Q6H PRN PRN Reason: Nausea/Vomiting Colesevelam Hcl [ (Welchol] 3.75 Mg) 0 each PO DAILY [facility] Last Admin: 04/08/17 10:08 Dose: Not Given Polyethylene Glycol (Miralax) 17 gm PO BID [facility] Last Admin: 04/08/17 10:06 Dose: 17 gm Rivaroxaban (Xarelto) 10 mg PO DAILY [facility] Last Admin: 04/08/17 10:07 Dose: 10 mg Fluticasone/Salmeterol (Advair Diskus 250-50) 0 puff INH BID [facility] Last Admin: 04/08/17 08:38 Dose: 1 puff Senna (Senna) 8.6 mg PO BID PRN PRN Reason: Constipation Discontinued Medications Atropine Sulfate (Atropine) Confirm Administered Dose 0.4 mg .ROUTE .STK-MED ONE Stop: 04/07/17 07:45 Bupivacaine HCl (Marcaine 0.25%) Confirm Administered Dose 30 ml .ROUTE .STK- MED ONE Stop: 04/07/17 06:09 Last Admin: 04/07/17 08:25 Dose: 30 ml Cefazolin Sodium (Ancef) Confirm Administered Dose 2 gm .ROUTE .STK-MED ONE Stop: 04/07/17 06:09 Last Admin: 04/07/17 08:22 Dose: 2 gm Cefazolin Sodium (Ancef) Confirm Administered Dose 2 gm .ROUTE .STK-MED ONE Stop: 04/07/17 06:58 Morphine Sulfate 8 mg/Epinephrine HCl 0.3 mg/Cefuroxime Sodium 750 mg/Ketorolac Tromethamine 30 mg/Sodium Chloride 27.9 ml 0 mg .XX ONETIME ONE Stop: 04/07/17 07:46 Last Admin: 04/07/17 08:24 Dose: 788.3 mg Diphenhydramine HCl (Benadryl) 25 mg IVPUSH Q6H PRN PRN Reason: Itching Stop: 04/07/17 12:00 Fentanyl (Sublimaze) Confirm Administered Dose 100 mcg .ROUTE .STK-MED ONE Stop: 04/07/17 06:58 Lactated Ringer's (Ringers, Lactated) 1,000 mls @ 125 mls/hr IV ASDIRECTED [facility] Stop: 04/07/17 23:00 Last Admin: 04/07/17 06:45 Dose: 125 mls/hr Cefazolin Sodium/Dextrose 2 gm (/ Premix) 50 mls @ 100 mls/hr IV Q8H [facility] Stop: 04/08/17 07:29 Last Admin: 04/08/17 06:06 Dose: 100 mls/hr Lactated Ringer's (Ringers, Lactated) Confirm Administered Dose 1,000 mls @ as directed .ROUTE .STK-MED ONE Stop: 04/07/17 08:50 Iodine (Iodine 2% Mild Tincture) Confirm Administered Dose 30 ml .ROUTE .STK- MED ONE Stop: 04/07/17 06:09 Last Admin: 04/07/17 08:20 Dose: 18 ml Lidocaine/Sodium Bicarbonate (Buffered Lidocaine 1% In Ns 8.4%) 0.25 ml .XX ONETIME PRN PRN Reason: Prior to IV Start Stop: 04/07/17 12:00 Last Admin: 04/07/17 06:45 Dose: 0.25 ml Morphine Sulfate (Duramorph Pf) Confirm Administered Dose 10 mg .ROUTE .STK-MED ONE Stop: 04/07/17 06:59 Ondansetron HCl (Zofran) Confirm Administered Dose 4 mg .ROUTE .STK-MED ONE Stop: 04/07/17 06:57 Phenylephrine HCl (Andrew-Synephrine) Confirm Administered Dose 10 mg .ROUTE .STK- MED ONE Stop: 04/07/17 07:37 Pneumococcal Polyvalent Vaccine (Pneumovax 23) 0.5 ml IM .ONCE ONE Stop: 04/07/17 12:01 Propofol (Diprivan 20 Ml) Confirm Administered Dose 200 mg .ROUTE .STK-MED ONE Stop: 04/07/17 06:58 Propofol (Diprivan 20 Ml) Confirm Administered Dose 200 mg .ROUTE .STK-MED ONE Stop: 04/07/17 07:58 Sodium Chloride (Saline Flush) 10 ml FLUSH ASDIRECTED PRN PRN Reason: Keep Vein Open Stop: 04/07/17 12:00 Tranexamic Acid (Cyklokapron) Confirm Administered Dose 1,000 mg .ROUTE .STK- MED ONE Stop: 04/07/17 06:09 Last Admin: 04/07/17 09:35 Dose: 1,000 mg Vancomycin HCl (Vancomycin) Confirm Administered Dose 1 gm .ROUTE .STK-MED ONE Stop: 04/07/17 06:09 Last Admin: 04/07/17 08:26 Dose: 1 gm - Exam Wound/Incisions: Dressing Dry and Intact General: Alert, Cooperative, No Acute Distress Lungs: Normal Respiratory Effort Extremities: Other (NVS intact for BLE. Ashley's negative BLE. Right thigh soft , min tender.) - Problem List Review Problem List Initiated/Reviewed/Updated: Yes - My Orders Last 24 Hours: Active Orders 24 hr Category Date Time Status Ready for Discharge [RC] PER UNIT ROUTINE Care 04/08/17 12:38 Active Albuterol [Proventil HFA] Med 04/07/17 13:27 Active 0 gm INH Q4H PRN Calcium Carbonate/Vitamin D3 [Calcium Carbonate/Vitamin Med 04/08/17 09:00 Active D 1500 MG-200 Unit] 1 tab PO DAILY Cholecalciferol (Vitamin D3) [Vitamin D3] Med 04/08/17 09:00 Active 2,000 units PO BID Cyanocobalamin (Vitamin B12) [Vitamin B12] Med 04/08/17 09:00 Active 5,000 mcg PO DAILY Docusate Sodium [Colace] Med 04/07/17 21:00 Active 100 mg PO BID Famotidine [Pepcid] Med 04/07/17 21:00 Active 20 mg PO BID Fish Oil/[place]-3 Fatty Acids [Fish Oil] Med 04/08/17 09:00 Active 1 gm PO BID Fluticasone/Salmeterol [Advair Diskus 250-50] Med 04/07/17 21:00 Active 0 puff INH BID Multivitamins,Therapeutic [Thera] Med 04/08/17 07:00 Active 1 each PO WITHBREAKFAST Patient's Own Medication [Ptom] Med 04/08/17 09:00 Active 0 each PO DAILY Polyethylene Glycol 3350 [MiraLAX] Med 04/07/17 21:00 Active 17 gm PO BID Rivaroxaban [Xarelto] Med 04/08/17 09:00 Active 10 mg PO DAILY Medication Orders Hydrocodone Bitart/Acetaminophen ([place] 325-5 Mg) 1 - 2 tab PO Q4H PRN PRN Reason: Pain Last Admin: 04/08/17 12:33 Dose: 2 tab Admin: 04/08/17 05:18 Dose: 2 tab Admin: 04/07/17 21:54 Dose: 2 tab Albuterol (Proventil Hfa) 0 gm INH Q4H PRN PRN Reason: Shortness of Breath Bisacodyl (Dulcolax) 5 mg PO DAILY PRN PRN Reason: Constipation Calcium Carbonate (Calcium Carbonate/Vitamin D 1500 Mg-200 Unit) 1 tab PO DAILY [facility] Last Admin: 04/08/17 10:07 Dose: 1 tab Cholecalciferol (Vitamin D3) 2,000 units PO BID [facility] Last Admin: 04/08/17 10:07 Dose: 2,000 units Cyanocobalamin (Vitamin B12) 5,000 mcg PO DAILY [facility] Last Admin: 04/08/17 10:06 Dose: 5,000 mcg Docusate Sodium (Colace) 100 mg PO BID [facility] Last Admin: 04/08/17 10:07 Dose: 100 mg Admin: 04/07/17 20:54 Dose: 100 mg Famotidine (Pepcid) 20 mg PO BID [facility] Last Admin: 04/08/17 10:07 Dose: 20 mg Admin: 04/07/17 20:54 Dose: 20 mg Fish Oil (Fish Oil) 1 gm PO BID [facility] Last Admin: 04/08/17 10:07 Dose: 1 gm Magnesium Hydroxide (Milk Of Magnesia) 30 ml PO BID PRN PRN Reason: Constipation Morphine Sulfate (Morphine) 1 mg IVPUSH Q2H PRN PRN Reason: Breakthrough pain Multivitamins (Thera) 1 each PO WITHBREAKFAST [facility] Last Admin: 04/08/17 06:06 Dose: 1 each Naloxone HCl (Narcan) 0.1 mg IVPUSH Q5M PRN PRN Reason: Oversedation Ondansetron HCl (Zofran) 4 mg IVPUSH Q6H PRN PRN Reason: Nausea/Vomiting Colesevelam Hcl [ (Welchol] 3.75 Mg) 0 each PO DAILY [facility] Last Admin: 04/08/17 10:08 Dose: Polyethylene Glycol (Miralax) 17 gm PO BID [facility] Last Admin: 04/08/17 10:06 Dose: 17 gm Admin: 04/07/17 20:54 Dose: 17 gm Rivaroxaban (Xarelto) 10 mg PO DAILY [facility] Last Admin: 04/08/17 10:07 Dose: 10 mg Fluticasone/Salmeterol (Advair Diskus 250-50) 0 puff INH BID [facility] Last Admin: 04/08/17 08:38 Dose: 1 puff Admin: 04/08/17 08:38 Dose: Senna (Senna) 8.6 mg PO BID PRN PRN Reason: Constipation - Assessment Assessment (Free Text/Narrative):: POD#1 - right LAUREN - Plan Plan (Free Text/Narrative):: 1. Discharge to home today. The pt has met inpatient therapy goals. 2. Xarelto x 35 day course. 3. [place] for pain management. 4. Hgb 9.[address] Mckenzie evaluated the pt today.
--- NOTE | 2017-04-09 10:03 | PCM.DCSUM1 ---
Discharge Summary - Hospital Course Brief History: Nayeli is an 86 yo female who underwent right LAUREN with Dr. Mckenzie on 04-07-2017. The procedure was completed under spinal anesthesia. The pt tolerated the procedure well and was admitted to the Medical-Surgical Unit. Medical management was provided by the Hospitalist service. The pt's Hospital course was uneventful. The pt's Hgb on POD#1 was 9.8. On POD#1, Xarelto was initiated for VTE prophylaxis. SCDs and TEDs were also ordered. A Mepilex dressing was placed at the incision site at the time of surgery and remained clean and dry. The pt participated in P.T. and O.T. and progressed well. She followed the LAUREN precautions. The pt was allowed to WBAT. On POD#1, the pt was deemed appropriate to discharge to home with her family. - Discharge Data Discharge Date: 04/08/17 Discharge Disposition: Home, Self-Care 01 Condition: Good - Patient Summary/Data Operative Procedure(s) Performed: right total hipn arthroplasty Consults: Consultations 04/07/17 07:20 Consult to Case Management [CONS] Routine Consult to Physician [CONS] Routine OT Evaluation and Treatment [CONS] Routine 04/07/17 07:27 PT Evaluation and Treatment [CONS] Routine - Patient Instructions Diet: Usual Diet as Tolerated Activity: Apply Ice, As Tolerated, Elevate Extremity, Full Weight Bearing Activity, Other: Total hip precautions. Driving: Do Not Drive Showering/Bathing: May Shower Wound/Incision Care: Keep Operative Site/Wound Site Clean and Dry, Do NOT Change Dressing Notify Provider of: Fever, Increased Pain, Swelling and Redness, Drainage, Nausea and/or Vomiting Other/Special Instructions: Please get up and moving around every hour while awake. This helps to prevent blood clots. Please use your walker and have help as needed. Take Xarelto daily. This also helps to prevent blood clots. The Xarelto is being used for blood clot prevention, so please do not miss a dose of the medication. Do the exercises you were taught in the Hospital. Schedule for P.T. Follow the total hip precautions. Use the pain medication as needed. The medication may cause drowsiness and constipation. Contact your primary care provider for instructions if you are constipated. You may use a stool softener like docusate sodium or Colace 100mg twice daily and/or a laxative like Miralax daily for constipation. Use the ice machine often. Elevate the limb to decrease swelling. Keep the Mepilex dressing in place until follow-up at the Clinic. Notify the Clinic if the dressing is saturated. Wear the RENETTA hose during the day and you may remove these at night. Eat a diet high in protein as this well help with healing. Schedule an appointment with your primary care provider for 'routine post-op care'. Call the Clinic with questions or concerns - [phone]. - Discharge Plan Prescriptions/Med Rec: Acetaminophen/HYDROcodone [[place] 325-5 MG] 1 - 2 tab PO Q6H #60 tablet Rivaroxaban [Xarelto] 10 mg PO DAILY #34 tablet Home Medications: Home Meds Acetaminophen [Tylenol Extra Strength] 1,000 mg PO BID PRN 04/04/17 [History] Albuterol [Proventil HFA] 2 puff INH Q4H PRN 04/04/17 [History] Calcium Carbonate/Vitamin D3 [Calcium 600 + Vit D 200] 1 tab PO DAILY 04/04/17 [ History] Cholecalciferol (Vitamin D3) [Vitamin D3] 2,000 unit PO BID 04/04/17 [History] Colesevelam HCl [Welchol] 3.75 mg PO DAILY 04/04/17 [History] Cyanocobalamin (Vitamin B-12) [Vitamin B-12] 5,000 mcg PO DAILY 04/04/17 [ History] Fish Oil/DHA/EPA [Fish Oil 1,200 MG] 1,200 g PO BID 04/04/17 [History] Fluticasone/Salmeterol [Advair 250-50 Diskus] 1 puff INH BID 04/04/17 [History] Multivit-Min/FA/Lycopene/Lut [Centrum Silver Tablet] 1 tab PO DAILY 04/04/17 [ History] Polyethylene Glycol 3350 [MiraLAX] 1 dose PO BID 04/04/17 [History] Acetaminophen/HYDROcodone [[place] 325-5 MG] 1 - 2 tab PO Q6H #60 tablet 04/08/17 [Rx] Docusate Sodium [Colace] 100 mg PO BID cap 04/08/17 [Rx] Rivaroxaban [Xarelto] 10 mg PO DAILY #34 tablet 04/08/17 [Rx] Patient Handouts: Asthma, Adult, Rivaroxaban oral tablets, Chronic Obstructive Pulmonary Disease, [id number], Total Hip Replacement, [id number], Hip Rehabilitation After Surgery, Total Hip Replacement, Care After, [id number] Referrals: Palma Shahid PA-C [Physician Reciprocating Drill Operator] - (Please see Palma Shahid on Friday04/15/17 at 11:00 AM and on Friday04/22/17 10:30 AM.) - Patient Data Vitals - Most Recent: Last Vital Signs Temp 98.8 F 04/08/17 07:29 Pulse 61 04/08/17 07:29 Resp 17 04/08/17 12:00 BP 107/50 L 04/08/17 07:29 Pulse Ox 17 L 04/08/17 15:00 Weight - Most Recent: 149 lb 1.6 oz I&O - Last 24 hours: Intake & Output 04/08/17 04/09/17 04/09/17 22:59 06:59 14:59 Intake Total 120 Balance 120 Med Orders - Current: Current Medications Discontinued Medications Hydrocodone Bitart/Acetaminophen ([place] 325-5 Mg) 1 - 2 tab PO Q4H PRN PRN Reason: Pain Last Admin: 04/08/17 12:33 Dose: 2 tab Albuterol (Proventil Hfa) 0 gm INH Q4H PRN PRN Reason: Shortness of Breath Atropine Sulfate (Atropine) Confirm Administered Dose 0.4 mg .ROUTE .STK-MED ONE Stop: 04/07/17 07:45 Bisacodyl (Dulcolax) 5 mg PO DAILY PRN PRN Reason: Constipation Bupivacaine HCl (Marcaine 0.25%) Confirm Administered Dose 30 ml .ROUTE .STK- MED ONE Stop: 04/07/17 06:09 Last Admin: 04/07/17 08:25 Dose: 30 ml Calcium Carbonate (Calcium Carbonate/Vitamin D 1500 Mg-200 Unit) 1 tab PO DAILY [facility] Last Admin: 04/08/17 10:07 Dose: 1 tab Cefazolin Sodium (Ancef) Confirm Administered Dose 2 gm .ROUTE .STK-MED ONE Stop: 04/07/17 06:09 Last Admin: 04/07/17 08:22 Dose: 2 gm Cefazolin Sodium (Ancef) Confirm Administered Dose 2 gm .ROUTE .STK-MED ONE Stop: 04/07/17 06:58 Cholecalciferol (Vitamin D3) 2,000 units PO BID [facility] Last Admin: 04/08/17 10:07 Dose: 2,000 units Morphine Sulfate 8 mg/Epinephrine HCl 0.3 mg/Cefuroxime Sodium 750 mg/Ketorolac Tromethamine 30 mg/Sodium Chloride 27.9 ml 0 mg .XX ONETIME ONE Stop: 04/07/17 07:46 Last Admin: 04/07/17 08:24 Dose: 788.3 mg Cyanocobalamin (Vitamin B12) 5,000 mcg PO DAILY [facility] Last Admin: 04/08/17 10:06 Dose: 5,000 mcg Diphenhydramine HCl (Benadryl) 25 mg IVPUSH Q6H PRN PRN Reason: Itching Stop: 04/07/17 12:00 Docusate Sodium (Colace) 100 mg PO BID [facility] Last Admin: 04/08/17 10:07 Dose: 100 mg Famotidine (Pepcid) 20 mg PO BID [facility] Last Admin: 04/08/17 10:07 Dose: 20 mg Fentanyl (Sublimaze) Confirm Administered Dose 100 mcg .ROUTE .STK-MED ONE Stop: 04/07/17 06:58 Fish Oil (Fish Oil) 1 gm PO BID [facility] Last Admin: 04/08/17 10:07 Dose: 1 gm Lactated Ringer's (Ringers, Lactated) 1,000 mls @ 125 mls/hr IV ASDIRECTED [facility] Stop: 04/07/17 23:00 Last Admin: 04/07/17 06:45 Dose: 125 mls/hr Cefazolin Sodium/Dextrose 2 gm (/ Premix) 50 mls @ 100 mls/hr IV Q8H [facility] Stop: 04/08/17 07:29 Last Admin: 04/08/17 06:06 Dose: 100 mls/hr Lactated Ringer's (Ringers, Lactated) Confirm Administered Dose 1,000 mls @ as directed .ROUTE .STK-MED ONE Stop: 04/07/17 08:50 Iodine (Iodine 2% Mild Tincture) Confirm Administered Dose 30 ml .ROUTE .STK- MED ONE Stop: 04/07/17 06:09 Last Admin: 04/07/17 08:20 Dose: 18 ml Lidocaine/Sodium Bicarbonate (Buffered Lidocaine 1% In Ns 8.4%) 0.25 ml .XX ONETIME PRN PRN Reason: Prior to IV Start Stop: 04/07/17 12:00 Last Admin: 04/07/17 06:45 Dose: 0.25 ml Magnesium Hydroxide (Milk Of Magnesia) 30 ml PO BID PRN PRN Reason: Constipation Morphine Sulfate (Duramorph Pf) Confirm Administered Dose 10 mg .ROUTE .STK-MED ONE Stop: 04/07/17 06:59 Morphine Sulfate (Morphine) 1 mg IVPUSH Q2H PRN PRN Reason: Breakthrough pain Multivitamins (Thera) 1 each PO WITHBREAKFAST [facility] Last Admin: 04/08/17 06:06 Dose: 1 each Naloxone HCl (Narcan) 0.1 mg IVPUSH Q5M PRN PRN Reason: Oversedation Ondansetron HCl (Zofran) Confirm Administered Dose 4 mg .ROUTE .STK-MED ONE Stop: 04/07/17 06:57 Ondansetron HCl (Zofran) 4 mg IVPUSH Q6H PRN PRN Reason: Nausea/Vomiting Colesevelam Hcl [ (Welchol] 3.75 Mg) 0 each PO DAILY [facility] Last Admin: 04/08/17 10:08 Dose: Not Given Phenylephrine HCl (Andrew-Synephrine) Confirm Administered Dose 10 mg .ROUTE .STK- MED ONE Stop: 04/07/17 07:37 Polyethylene Glycol (Miralax) 17 gm PO BID [facility] Last Admin: 04/08/17 10:06 Dose: 17 gm Propofol (Diprivan 20 Ml) Confirm Administered Dose 200 mg .ROUTE .STK-MED ONE Stop: 04/07/17 06:58 Propofol (Diprivan 20 Ml) Confirm Administered Dose 200 mg .ROUTE .STK-MED ONE Stop: 04/07/17 07:58 Rivaroxaban (Xarelto) 10 mg PO DAILY [facility] Last Admin: 04/08/17 10:07 Dose: 10 mg Fluticasone/Salmeterol (Advair Diskus 250-50) 0 puff INH BID [facility] Last Admin: 04/08/17 08:38 Dose: 1 puff Senna (Senna) 8.6 mg PO BID PRN PRN Reason: Constipation Sodium Chloride (Saline Flush) 10 ml FLUSH ASDIRECTED PRN PRN Reason: Keep Vein Open Stop: 04/07/17 12:00 Tranexamic Acid (Cyklokapron) Confirm Administered Dose 1,000 mg .ROUTE .STK- MED ONE Stop: 04/07/17 06:09 Last Admin: 04/07/17 08:35 Dose: 1,000 mg Vancomycin HCl (Vancomycin) Confirm Administered Dose 1 gm .ROUTE .STK-MED ONE Stop: 04/07/17 06:09 Last Admin: 04/07/17 08:26 Dose: 1 gm *Q Meaningful Use (DIS) - VTE *Q VTE Criteria *Q: - Stroke *Q Stroke Criteria *Q: - AMI *Q AMI Criteria *Q:
== END 2017-04-08 15:02 | disposition home or self-care (01) | DRG 470 ==
LOC: JD.ICU 06:06 → JD.MS 09:04
PROVIDERS: ADMIT Orthopaedic Surgery; ATTEND Orthopaedic Surgery
PROC: 0SR9019 Replacement of Right Hip Joint with Metal Synthetic Substitute, Cemented, Open Approach (ICD-10-PCS; principal; 2017-04-07)
DX: M16.11 Unilateral primary osteoarthritis, right hip (principal); I10 Essential (primary) hypertension; E78.5 Hyperlipidemia, unspecified; J44.9 Chronic obstructive pulmonary disease, unspecified; K59.09 Other constipation; G62.9 Polyneuropathy, unspecified; L82.1 Other seborrheic keratosis; Z87.891 Personal history of nicotine dependence; Z85.038 Personal history of other malignant neoplasm of large intestine; Z88.1 Allergy status to other antibiotic agents; Z88.8 Allergy status to other drugs, medicaments and biological substances; Z79.899 Other long term (current) drug therapy
CPT/HCPCS: 01214; 36415; 73501-26-RT; 73501-RT; 80053; 85027; 86850; 86900; 86901; 87641; 94664; 94762; 97110-GP; 97116-GP; 97162-GP; 97165-GO; 97535-GO; A9270-GY; C1776; J0171; J0461; J0690; J0697; J1885; J2270; J2370; J2405; J2704; J3010; J3370; J3490; J7120